=== PATIENT | female | born 1990 | race Caucasian/White ===

== ENCOUNTER 2024-03-22 11:33 | Outpatient (CLI) | payer OTHER ==
[2024-03-22 20:51] LABS: ESTIMATED AVERAGE GLUCOSE 105 mg/dL (70-100); HEMOGLOBIN A1c% 5.3 % (4.27-6.07)
[2024-03-23 05:15] LABS: HIV SCREEN 4TH GENERATION Non Reactive (Non Reactive)
== END 2024-03-22 11:34 | disposition home or self-care (01) ==
LOC: LAB.S 11:33
PROVIDERS: ATTEND Obstetrics & Gynecology
DX: Z34.90 Encounter for supervision of normal pregnancy, unspecified, unspecified trimester (principal)
CPT/HCPCS: 36415; 83036; 86787; 86803; 87389

== ENCOUNTER 2024-04-04 16:01 | Outpatient (CLI) | payer OTHER ==
--- NOTE | 2024-04-05 17:09 | Ultrasound Report ---
PROCEDURE: OB 1st Trimester w/TV INDICATIONS: POSITIVE TEST OUTSIDE/PRIOR DATING DATA: Last menstrual period (LMP): 01/26/2024. LMP-based estimated date of delivery (KAR): 11/01/2024. First dating scan (date and location): 04/04/2024. Estimated date of delivery (KAR) from first dating scan: 11/02/2024. TECHNIQUE: Real-time scanning was performed of the fetus and maternal pelvic organs, with image documentation. Endovaginal scanning was also performed to better visualize the fetus and maternal ovaries. COMPARISON: None. FINDINGS: Intrauterine gestational sac present. Embryo: pole with crown-rump length measuring 2.9 cm consistent 9 weeks and 5 days. Heart rate: 164 bpm. Other: No perigestational fluid collection. Measurement variability in dating: +/- 4 weeks by LMP, +/- 7 days by mean sac diameter (use before 6 weeks gestation if crown-rump length not able to be measured), +/- 5 days by crown-rump length (6-12 weeks gestation). Maternal organs: Ovaries appear within normal limits. Left ovarian corpus luteal cyst. Posterior int ramural fibroid measuring 1.8 cm. Left pedunculated fibroid measuring 3.1 x 2.9 x 4.2 cm. IMPRESSION: 1.Single live intrauterine consistent with 9 weeks and 5 days. 2.Uterine fibroids as above. Reviewed by: Malcom Evans MD on 04/05/2024 5:08 PM PDT Approved by: Malcom Evans MD on 04/05/2024 5:08 PM PDT Station ID: [id number]
== END 2024-04-04 16:02 | disposition home or self-care (01) ==
LOC: DI 16:01
PROVIDERS: ATTEND Obstetrics & Gynecology
DX: O34.11 Maternal care for benign tumor of corpus uteri, first trimester (principal); D25.1 Intramural leiomyoma of uterus; Z3A.09 9 weeks gestation of pregnancy

== ENCOUNTER 2024-10-17 13:57 | Inpatient (IN) ==
[2024-10-17] MEDS ORDERED: miSOPROStoL 200 MCG TABLET BC PRN (14:05)
[2024-10-17] MEDS ORDERED: lidocaine 1% 20 ML MDV ID PRN (14:05)
[2024-10-17] MEDS ORDERED: ACETAMINOPHEN 500 MG TABLET PO PRN (14:05)
[2024-10-17] MEDS ORDERED: OXYTOCIN 10 UNIT/ML VIAL IM PRN (14:05)
[2024-10-17] MEDS ORDERED: LABETALOL 20 MG/4 ML SYRINGE IVP PRN ×3 (14:05)
[2024-10-17] MEDS ORDERED: NIFEdipine 10 MG CAPSULE PO PRN (14:05)
[2024-10-17] MEDS ORDERED: METHYLERGONOVINE 0.2 MG/ML VIAL IM PRN (14:05)
[2024-10-17] MEDS ORDERED: hydrALAZINE INJ 20 MG/ML VIAL IVP PRN ×2 (14:05)
[2024-10-17] MEDS ORDERED: CARBOPROST TROMETHAMINE 250 MCG/ML VIAL IM PRN (14:05)
[2024-10-17] MEDS ORDERED: TRANEXAMIC ACID IN NACL 1,000 MG/100 ML BAG IV PRN (14:05)
[2024-10-17] MEDS ORDERED: SODIUM CHLORIDE FLUSH 0.9% 10 ML SYRINGE IVP PRN (14:05)
[2024-10-17] MEDS ORDERED: OXYTOCIN/SODIUM CHLORIDE 500 ML IV PRN (14:05)
--- NOTE | 2024-10-17 14:40 | HISTORY & PHYSICAL EXAMINATION ---
Admit History Smoking Status: Never smoker Other Maternal History Other Maternal History: Patient is a 34-year-old at 37 weeks 6 days gestation presented a for induction of labor. She has newly diagnosed gestational hypertension with mul tiple elevated blood pressures in the nonsevere range. She did have an elevated protein creatinine ratio last week of 0.3. She has gestational diabetes and is using insulin. Growth scan last night, although not resulted, appears to show IUGR with any EFW of 2587 g, 8%. She has good movement, no leaking or bleeding. No headache, change vision, right upper quadrant pain. Course LMP: 01/26/24 KAR by LMP: 11/01/24 US: @ 9.5wks c/w LMP dating (KAR 11/02/2024) Final KAR: 11/01/2024 PROBLEM: A2GDM: Initiating Insulin 08/22/2024 @ 29.6wks gestation -Lantus 19 units every afternoon -q4wk growth ultrasounds -EFW at 34 weeks: 2284 g, 25th percentile. -NST twice a week Uterine fibroids: 3rd trimester growth ultrasound -(1st trimester ultrasound performed 04/05/2024 @ 9.5wks: "Posterior intramural fibroid measuring 1.8cm. Left pedunculated fibroid measuring 3.1 x 2.9 x 4.2 cm.") That is affecting ALLERGIES: NKDA RX: PNV, Zoloft, Colace, lantus Surgeries: Mandibular surgery FMHX: CAD: Father, PGF Pre- Weight:178.6 BMI: 32.26 Blood type: O+ Antibody: negative CBC: PLT 273 HCT 33.8 HGB 10.8 RUB: Immune VZV: immune HBsAg: negative HepC: NR RPR/AB-EIA: NR HIV: NR HgbA1c: 5.3% PAP:11/17/23 - normal GC/CT: HSV:denies in self and partner Genetic testing: NIPT - negative AFP Covid: 05/22 Flu: 05/22 FAS: 06/15/24 Placenta: anterior Cord: 3vc CIELO: 14.5cm EFW: 300g Growth U/S @ 30wks: EFW 44%tile, CIELO 19.1cm 50gm OGCT: 164 3HR GTT: F:84 1hr 196 2hr 211 3hr 116 TDAP: 08/15/2024 Breast Pump: has 3rd trimester PLT 273 HCT 33.8 HGB 10.8 GBS: Delivery plan: MOD: Anticipate Contraception: Mirena IUD NST Procedure NST Procedure: NST Procedure Start Time 13:05 Stop Time 13:32 Meds/Allgy Home Medications Ambulatory Orders Medication Instructions Recorded Confirmed vitamins no.159-iron tab PO 05/22/24 10/13/24 fumarate 28 mg-folic acid 800 mcg tablet ( Vitamin) sertraline 50 mg tablet (Zoloft) 50 mg PO QDAY 05/22/24 10/13/24 pen needle, diabetic 32 gauge x #100 ea 08/22/24 10/05/2409/24" (Comfort EZ Pen [place]) blood sugar diagnostic #100 ea 08/29/24 10/05/24 cholecalciferol (vitamin D3) 25 25 mcg PO QDAY 08/29/24 10/13/24 mcg (1,000 unit) capsule lancets #200 ea 08/29/24 10/05/24 magnesium glycinate mg PO 08/29/24 10/13/24 insulin glargine 100 unit/mL (3 19 unit subcut QPM 09/28/24 10/13/24 mL) subcutaneous pen (Lantus Solostar U-100 Insulin) choline 500 mg tablet 500 mg PO DAILY 10/17/24 10/17/24 docusate sodium 100 mg capsule 100 mg PO DAILY 10/17/24 10/17/24 (Colace) ferrous sulfate 325 mg (65 mg 325 mg PO DAILY 10/17/24 10/17/24 iron) tablet Allergies Allergies Allergy/AdvReac Type Severity Reaction Status Date / Time No Known Drug Allergies Allergy Verified 10/13/24 09:20 PFSH Active Problems All Active Problems (Updated 10/17/24 @ 14:44 by Otilio Kamara MD) Preeclampsia (Acute) Supervision of high risk in third trimester (Acute) IUGR (intrauterine growth restriction) (Acute) Elevated blood pressure reading without diagnosis of hypertension (Acute) Gestational diabetes mellitus (GDM) requiring insulin (Acute) Anemia complicating , third trimester (Acute) (Acute) Medical History Medical History (Updated 10/17/24 @ 14:44 by Otilio Kamara MD) Gestational hypertension Normal first confirmed, currently in second trimester Surgical History Surgical History (Updated 05/22/24 @ 07:53 by Renetta Carter MA) History of mandibular surgery Family History Family History (Updated 05/22/24 @ 07:53 by Renetta Carter MA) Father CAD (coronary artery disease) Maternal grandfather CAD (coronary artery disease) Maternal grandfather No problems noted. Paternal grandfather CAD (coronary artery disease) Social History Social History (Updated 05/22/24 @ 07:54 by Renetta Carter MA) Smoking Status: Never smoker Do you vape?: No Substance Use: denies use Are you sexually active?: Yes Review of Systems Status of ROS: 10 or more systems reviewed and unremarkable except as noted in history and below Physical Other Notes Labor Progress Note/Additional Text: General: Alert, oriented, no acute distress Head: Normal cephalic atraumatic Eyes: PERRLA, extraocular motions intact. Respiratory: Normal rate of respiration. No accessory muscle use, normal respiratory effort. Cardiovascular: Regular rate and rhythm Abdomen: Gravid, nontender, nondistended Extremities: Normal range of motion Neuro: Oriented x3. Normal movements Psych: Appropriate mood and affect. Normal judgment and insight SVE: 1/0/-3 FHT: 135 BPM baseline, moderate variability, accelerations present, no decelerations. Reactive NST [place]: quiescent Plan for Labor Plan For Labor I expect patient to be DC'd or transferred within 96 hours.: Yes Conclusion/Plan Problem List (1) Preeclampsia: Plan: Patient met criteria today at [facility]. Also had a previously elevated protein creatinine ratio. No severe features. Admit to L&D for cervical ripening. Anticipate labor if successful. Epidural at patient's request. CBC, CMP, protein creatinine ratio repeated today Counseled on The Risk, Benefits, Alternatives of Induction of Labor, including the risk of vaginal delivery including bleeding, infection, prolapse, intolerance, operative vaginal delivery, section. Patient agrees with plan and will plan for induction with misoprostol for cervical ripening for unfavorable cervix. Qualifiers: Trimester: third trimester Qualified Code(s): O14.93 - Unspecified pre- eclampsia, third trimester (2) IUGR (intrauterine growth restriction): Plan: 8% on ultrasound. Final report pending. Greater than 2500 g (3) Gestational diabetes mellitus (GDM) requiring insulin: Plan: Well-controlled on evening insulin Will keep her evening insulin, but decrease dose. Can give supplemental insulin if needed Fasting and postprandial glucose checks. Also check before evening dose. (4) Supervision of high risk in third trimester: Plan: As above
--- NOTE | 2024-10-17 14:47 | PHARMACY PROGRESS NOTE ---
Best Possible Medication History Admit Date and Time: 10/17/24 [id number] Home Medications Medication Instructions Recorded Confirmed Type vitamins no.159-iron 1 tab PO DAILY 05/22/24 10/17/24 History fumarate 28 mg-folic acid 800 mcg tablet ( Vitamin) sertraline 50 mg tablet (Zoloft) 50 mg PO DAILY 05/22/24 10/17/24 History pen needle, diabetic 32 gauge x #100 ea 08/22/24 10/05/24 Rx 3/16" (Comfort EZ Pen [place]) blood sugar diagnostic #100 ea 08/29/24 10/05/24 Rx cholecalciferol (vitamin D3) 25 25 mcg PO DAILY 08/29/24 10/17/24 History mcg (1,000 unit) capsule lancets #200 ea 08/29/24 10/05/24 Rx magnesium glycinate 100 mg PO DAILY 08/29/24 10/17/24 History insulin glargine 100 unit/mL (3 20 unit subcut QPM 09/28/24 10/17/24 History mL) subcutaneous pen (Lantus Solostar U-100 Insulin) choline 500 mg tablet 500 mg PO DAILY 10/17/24 10/17/24 History docusate sodium 100 mg capsule 100 mg PO DAILY 10/17/24 10/17/24 History (Colace) ferrous sulfate 325 mg (65 mg 325 mg PO DAILY 10/17/24 10/17/24 History iron) tablet Processed by: Pharmacy Medications reviewed in ED?: No Medication History completed: Yes Patient Interview: Completed Secondary Source(s): Insurance records [facility] Statement: As the person ultimately responsible for medication therapy, providers are able to order a medication from an existing home medication list in [facility] via the "Reconcile Routine" prior to Confirmation of that medication by personal support worker. Such practice is discouraged except when the physician, in their clinical judgment, deems that a medical need exists for a medication without regard to previous use.
[2024-10-17 15:44] LABS: BASOPHILS % (AUTO) 0.4 %; EOSINOPHILS # (AUTO) 0.1 10^3/uL (0.0-0.7); EOSINOPHILS % (AUTO) 0.7 %; HCT - HEMATOCRIT 34.6 % (37.0-47.0); HGB - HEMOGLOBIN 11.5 g/dL (12.0-16.0); LYMPHOCYTES # (AUTO) 1.7 10^3/uL (1.5-3.5); LYMPHOCYTES % (AUTO) 18.3 %; MEAN CORPUSCULAR HEMOGLOBIN 27.2 pg (27.0-31.0); MEAN CORPUSCULAR HGB CONC 33.2 g/dL (32.0-36.0); MEAN CORPUSCULAR VOLUME 81.8 fL (81.0-99.0); MEAN PLATELET VOLUME 11.1 fL (7.9-10.8); MONOCYTES # (AUTO) 0.5 10^3/uL (0.0-1.0); MONOCYTES % (AUTO) 5.3 %; NEUTROPHILS # (AUTO) 7.1 10^3/uL (1.5-6.6); NEUTROPHILS % (AUTO) 74.7 %; PLT - PLATELET COUNT 207 10^3/uL (130-450); RED BLOOD COUNT 4.23 10^6/uL (4.20-5.40); RED CELL DISTRIBUTION WIDTH 14.3 % (12.0-15.0); WHITE BLOOD COUNT 9.5 x10^3/uL (4.8-10.8)
[2024-10-17] MEDS: miSOPROStoL 100 MCG TABLET VG SCH (15:52)
[2024-10-17 16:01] LABS: ALBUMIN 3.5 g/dL (3.2-5.5); ALBUMIN/GLOBULIN RATIO 1.1 (1.0-2.2); BILIRUBIN,TOTAL 0.2 mg/dL (0.2-1.0); CALCIUM 9.4 mg/dL (8.5-10.3); CREATININE 0.6 mg/dL (0.6-1.3); POTASSIUM 3.8 mmol/L (3.5-4.5); TOTAL PROTEIN 6.6 g/dL (6.4-8.9)
[2024-10-17 16:24] LABS: CREATININE,URINE 54.4 mg/dL; PROTEIN/CREATININE RATIO,URINE 0.3 (<=0.2)
[2024-10-17] MEDS: SODIUM CHLORIDE FLUSH 0.9% 10 ML SYRINGE IVP SCH (19:56)
[2024-10-17] MEDS: SERTRALINE 50 MG TABLET PO SCH (21:04)
[2024-10-17] MEDS: INSULIN GLARGINE-YFGN 300 UNIT/3 ML PEN SUBQ SCH (21:06)
[2024-10-17] MEDS: CALCIUM CARBONATE CHEW 500 MG TABLET PO SCH (21:12)
[2024-10-18] MEDS ORDERED: CALCIUM CARBONATE CHEW 500 MG TABLET PO PRN (07:37)
--- NOTE | 2024-10-18 12:30 | ANESTHESIA PROCEDURE NOTE ---
Pre-Anesthesia VS, & Labs Diagnosis Surgical Diagnosis:: labor induction Procedure Procedure: Active labor, gestational DM, Pre-eclampsia Vitals Vital Signs: Temp Pulse Resp BP Pulse Ox 36.9 C 93 16 125/81 99 10/18/24 08:35 10/18/24 08:35 10/18/24 08:35 10/18/24 08:35 10/18/24 08:35 NPO NPO: Other Is Patient ?: Yes Lab Results Current Lab Results: Laboratory Tests 10/17/24 21:08: POC Whole Bld Glucose 89 10/17/24 15:35: WBC 9.5, RBC 4.23, Hgb 11.5 L, Hct 34.6 L, MCV 81.8, MCH 27.2, MCHC 33.2, RDW 14.3, Plt Count 207, MPV 11.1 H, Neut # (Auto) 7.1 H, Lymph # (Auto) 1.7, [place] # (Auto) 0.5, Eos # (Auto) 0.1, Baso # (Auto) 0.0, Absolute Nucleated RBC 0.00, Nucleated RBC % 0.0, Sodium 134 L, Potassium 3.8, Chloride 104, Carbon Dioxide 22, Anion Gap 8.0, BUN 14, Creatinine 0.6, Estimated GFR (MDRD) 115, Glucose 88, Calcium 9.4, Total Bilirubin 0.2, AST 14, ALT 25, A lkaline Phosphatase 151 H, Total Protein 6.6, Albumin 3.5, Globulin 3.1, Albumin/Globulin Ratio 1.1, Blood Type O POSITIVE, Antibody Screen NEGATIVE 10/17/24 15:35 10/17/24 15:35 Meds/Allgy Home Medications Ambulatory Orders Medication Instructions Recorded Confirmed vitamins no.159-iron 1 tab PO DAILY 05/22/24 10/17/24 fumarate 28 mg-folic acid 800 mcg tablet ( Vitamin) sertraline 50 mg tablet (Zoloft) 50 mg PO DAILY 05/22/24 10/17/24 pen needle, diabetic 32 gauge x #100 ea 08/22/24 10/05/24 3/16" (Comfort EZ Pen [place]) blood sugar diagnostic #100 ea 08/29/24 10/05/24 cholecalciferol (vitamin D3) 25 25 mcg PO DAILY 08/29/24 10/17/24 mcg (1,000 unit) capsule lancets #200 ea 08/29/24 10/05/24 magnesium glycinate 100 mg PO DAILY 08/29/24 10/17/24 insulin glargine 100 unit/mL (3 20 unit subcut QPM 09/28/24 10/17/24 mL) subcutaneous pen (Lantus Solostar U-100 Insulin) choline 500 mg tablet 500 mg PO DAILY 10/17/24 10/17/24 docusate sodium 100 mg capsule 100 mg PO DAILY 10/17/24 10/17/24 (Colace) ferrous sulfate 325 mg (65 mg 325 mg PO DAILY 10/17/24 10/17/24 iron) tablet Allergies Allergies Allergy/AdvReac Type Severity Reaction Status Date / Time No Known Drug Allergies Allergy Verified 10/13/24 09:20 PFSH Active Problems All Active Problems (Updated 10/17/24 @ 14:44 by Otilio Kamara MD) Preeclampsia (Acute) Supervision of high risk in third trimester (Acute) IUGR (intrauterine growth restriction) (Acute) Elevated blood pressure reading without diagnosis of hypertension (Acute) Gestational diabetes mellitus (GDM) requiring insulin (Acute) Anemia complicating , third trimester (Acute) (Acute) Medical History Medical History (Updated 10/17/24 @ 14:44 by Otilio Kamara MD) Gestational hypertension Normal first confirmed, currently in second trimester Surgical History Surgical History (Updated 05/22/24 @ 07:53 by Renetta Carter MA) History of mandibular surgery Family History Family History (Updated 05/22/24 @ 07:53 by Renetta Carter MA) Father CAD (coronary artery disease) Maternal grandfather CAD (coronary artery disease) Maternal grandfather No problems noted. Paternal grandfather CAD (coronary artery disease) Social History Social History (Updated 05/22/24 @ 07:54 by Renetta Carter MA) Smoking Status: Never smoker Do you dip or chew tobacco?: No Do you vape?: No Patient requests smoking cessation consult: No Initiate information on smoking cessation: No Substance Use: denies use Are you sexually active?: Yes Anesthesia Exam (Expanded) Exam General: Alert, Oriented x3, Cooperative and No acute distress Dental: WNL Mouth Opening: Greater than 4 Fingerbreadths Neck Mobility: Normal Mallampati classification: II Thyromental Distance: greater than 6 cm Respiratory: Lungs clear Cardiovascular: Regular rate Exam Exam Vital Signs: Vital Signs x48h Temp Pulse Resp BP Pulse Ox 10/18/24 08:35 36.9 C 93 16 125/81 99 Plan Problem List (1) Preeclampsia: Plan: Patient met criteria today at [facility]. Also had a previously elevated protein creatinine ratio. No severe features. Admit to L&D for cervical ripening. Anticipate labor if successful. Epidural at patient's request. CBC, CMP, protein creatinine ratio repeated today Counseled on The Risk, Benefits, Alternatives of Induction of Labor, including the risk of vaginal delivery including bleeding, infection, prolapse, intolerance, operative vaginal delivery, section. Patient agrees with plan and will plan for induction with misoprostol for cervical ripening for unfavorable cervix. Qualifiers: Trimester: third trimester Qualified Code(s): O14.93 - Unspecified pre- eclampsia, third trimester (2) IUGR (intrauterine growth restriction): Plan: 8% on ultrasound. Final report pending. Greater than 2500 g (3) Gestational diabetes mellitus (GDM) requiring insulin: Plan: Well-controlled on evening insulin Will keep her evening insulin, but decrease dose. Can give supplemental insulin if needed Fasting and postprandial glucose checks. Also check before evening dose. (4) Supervision of high risk in third trimester: Plan: As above Plan Anesthesia Type: Epidural Consent for Procedure(s) Verified and Reviewed: Yes Code Status: Attempt Resuscitation ASA Classification ASA classification: 3-Severe systemic disease Is this case an emergency?: No
[2024-10-18] MEDS: ONDANSETRON 4 MG/2 ML VIAL IVP PRN (12:55)
[2024-10-18] MEDS: LACTATED RINGERS 1,000 ML IV PRN ×2 (12:56→15:20)
[2024-10-18] MEDS ORDERED: ROPIVACAINE 0.2% 200 MG/100 ML BAG EP ONE (12:56)
[2024-10-18] MEDS ORDERED: ePHEDrine 50 MG/ML VIAL IVP PRN (13:35)
[2024-10-18] MEDS ORDERED: ONDANSETRON 4 MG/2 ML VIAL IVP PRN (13:35)
[2024-10-18] MEDS ORDERED: METOCLOPRAMIDE 10 MG/2 ML VIAL IVP PRN (13:35)
[2024-10-18] MEDS ORDERED: NALOXONE 0.4 MG/ML VIAL IVP PRN (13:35)
[2024-10-18] MEDS ORDERED: LACTATED RINGERS 500 ML IV ONE (13:35)
[2024-10-18] MEDS ORDERED: diphenhydrAMINE INJ 50 MG/ML VIAL IVP PRN (13:35)
[2024-10-18] MEDS ORDERED: NALBUPHINE 10 MG/ML AMP IVP PRN (13:35)
--- NOTE | 2024-10-18 13:41 | PROVIDER PROGRESS NOTE ---
Labor Progress Note Labor Progress Note Labor Progress Note/Additional Text: S: Abbi was evaluated at bedside at approximately 11am. Feeling some discomfort with contractions. Discussed AROM and she did agree to proceed. O: VS reviewed in Centricity SVE: 50/-2, AROM performed with small amount of clear fluid monitoring: FHTs: 130s bpm baseline, + accel, a few late decelerations, mod variability [place]: 2-5 min Cat 2, overall reassuring A/P: 34 yo at 38w0d undergoing IOL: - gHTN - A2DM on insulin - IUGR, 8%tile - GBS neg - Received misoprostol x 4 doses, now s/p AROM. Discussed repeat SVE in 4hrs and possible augmentation with pitocin if contractions space out or SVE is unchanged. - BPs normal to mild range. Continue to monitor. - Increase BG checks to every 1 hour. Discussed possible insulin drip if BGs persistenly > 120. Cesar Maxwell MD
[2024-10-18] MEDS: ROPIVACAINE 0.2% 200 MG/100 ML BAG EP PRN (19:08)
[2024-10-18] MEDS ORDERED: INSULIN GLARGINE-YFGN 300 UNIT/3 ML PEN SUBQ SCH (21:00)
[2024-10-18] MEDS ORDERED: miSOPROStoL 200 MCG TABLET ONE (21:12)
--- NOTE | 2024-10-19 15:06 | PROVIDER PROGRESS NOTE ---
Subjective Prog Note Date Prog Note Date: 10/19/24 Prog Note Time: 15:04 Subjective Subjective: Feeling well today. Reports pain is well controlled. She is and supplementing with formula as baby has had some low blood sugars. She is ambulating around the room without difficulty. Urinating spontaneously. Reports bleeding is light. No COLON, vision changes, upper abdominal pain. Current Medications Current Medications Current Medications: Current Medications Generic Name Dose Route Start Last Admin Trade Name Freq PRN Reason Stop Dose Admin Acetaminophen 1,000 mg 10/17/24 14:05 Acetaminophen 500 Mg Tablet PO Q6HR PRN Pain or Fever > 38C (100.4F) Calcium Carbonate/Glycine 500 mg 10/18/24 07:37 Calcium Carbonate Chew 500 Mg Tablet PO BID PRN Heartburn Carboprost Tromethamine 250 mcg 10/17/24 14:05 Carboprost Tromethamine 250 Mcg/Ml Vial IM 10/22/24 14:05 Q15M PRN Step 4: Hemorrhage protocol Diphenhydramine HCl 12.5 - 25 mg 10/18/24 13:35 Diphenhydramine Inj 50 Mg/Ml Vial IVP Q6HR PRN ITCHING Ephedrine Sulfate 5 mg 10/18/24 13:35 Ephedrine 50 Mg/Ml Vial IVP Q5M PRN For SBP<100;give until SBP>100 Hydralazine HCl 5 - 20 mg 10/17/24 14:05 Hydralazine Inj 20 Mg/Ml Vial IVP Q20M PRN SBP >160 or DBP >110 Protocol Hydralazine HCl 10 mg 10/17/24 14:05 Hydralazine Inj 20 Mg/Ml Vial IVP 10/22/24 14:05 .ONCE PRN Step 9 of Labetalol protocol Protocol Lactated Ringer's 1,000 mls @ 100 mls/hr 10/17/24 14:05 10/18/24 15:20 Lr IV 100 mls/hr .Q10H PRN Administration Save for active labor Lactated Ringer's 1,000 mls @ 999 mls/hr 10/17/24 14:05 10/18/24 12:56 Lr IV 10/20/24 14:04 999 mls/hr ONCE PRN Administration distress Oxytocin/Sodium Chloride 500 mls @ 999 mls/hr 10/17/24 14:05 Pitocin/Sodium Chloride IV 10/22/24 14:05 PRN PRN POST- HEMORR PREVENTION Protocol 999 MILLIUNIT/MIN Tranexamic Acid 1,000 mg in 100 mls @ 600 mls/hr 10/17/24 14:05 Tranexamic 1,000 Mg/100ml-Nacl IV 10/22/24 14:05 .ONCE PRN EBL >1200mL and within 3hr Ropivacaine 200 mg in 100 mls @ 0 mls/hr 10/18/24 13:35 10/18/24 19:08 Naropin 0.2% EP 10 mls/hr PRN PRN Administration PAIN Protocol Per Protocol Labetalol HCl 20 - 80 mg 10/17/24 14:05 Labetalol 20 Mg/4 Ml Syringe IVP Q10M PRN SBP >160 or DBP >110 Protocol Labetalol HCl 20 mg 10/17/24 14:05 Labetalol 20 Mg/4 Ml Syringe IVP 10/22/24 14:05 .ONCE PRN Step 9 of nifedipine protocol Protocol Labetalol HCl 40 mg 10/17/24 14:05 Labetalol 20 Mg/4 Ml Syringe IVP 10/22/24 14:05 .ONCE PRN Step 9 of hydrALAZine protocol Protocol Lidocaine HCl 20 ml 10/17/24 14:05 Lidocaine 1% 20 Ml Mdv ID 10/22/24 14:05 .ONCE PRN PERINEAL REPAIR Methylergonovine Maleate 0.2 mg 10/17/24 14:05 Methylergonovine 0.2 Mg/Ml Vial IM 10/22/24 14:05 .ONCE PRN Step 2: Hemorrhage protocol Metoclopramide HCl 10 mg 10/18/24 13:35 Metoclopramide 10 Mg/2 Ml Vial IVP Q6HR PRN Nausea / Vomiting Misoprostol 800 mcg 10/17/24 14:05 Misoprostol 200 Mcg Tablet BC 10/22/24 14:05 .ONCE PRN Step 3: Hemorrhage protocol Nalbuphine HCl 2.5 - 5 mg 10/18/24 13:35 Nalbuphine 10 Mg/Ml Amp IVP Q4H PRN ITCHING Naloxone HCl 0.1 mg 10/18/24 13:35 Naloxone 0.4 Mg/Ml Vial IVP Q2M PRN RR<8 Nifedipine 10 - 20 mg 10/17/24 14:05 Nifedipine 10 Mg Capsule PO Q20M PRN SBP >160 or DBP >110 Protocol Ondansetron HCl 4 mg 10/17/24 14:05 10/18/24 12:55 Ondansetron 4 Mg/2 Ml Vial IVP 4 mg Q4HR PRN Administration Nausea / Vomiting Ondansetron HCl 4 mg 10/18/24 13:35 Ondansetron 4 Mg/2 Ml Vial IVP Q6HR PRN Nausea / Vomiting Oxytocin 10 unit 10/17/24 14:05 Oxytocin 10 Unit/Ml Vial IM 10/22/24 14:05 .ONCE PRN Step one: If no IV access Sertraline HCl 50 mg 10/17/24 21:00 10/17/24 21:04 Sertraline 50 Mg Tablet PO 50 mg QPM ANIL Administration Sodium Chloride 10 ml 10/17/24 17:00 10/18/24 17:00 Sodium Chloride Flush 0.9% 10 Ml Syringe IVP Not Given 0100,0900,1700 ANIL Sodium Chloride 10 ml 10/17/24 14:05 Sodium Chloride Flush 0.9% 10 Ml Syringe IVP PRN PRN NEEDED PER PROVIDER ORDERS Objective Vital Signs/Intake & Output Reviewed Vital Signs: Yes Vital Signs: Vital Signs x48h Temp Pulse Resp BP Pulse Ox 10/19/24 10:28 98.2 F 84 16 134/83 H 98 Intake & Output: Intake & Output 10/16/24 10/17/24 10/18/24 10/19/24 23:59 23:59 23:59 23:59 Intake Total 800 / 800 900 / 900 Output Total 700 / 700 2000 / 2000 Balance 100 / 100 -1100 / -1100 Weight (kg) 207 lb Objective Comments/Other: Gen: NAD Chest: non labored respirations Abd: gravid, non tender Ext: trace LE edema, no evidence of DVT Lab Results 10/17/24 15:35 10/17/24 15:35 Assessment/Plan Problem List (1) care and examination of lactating mother: Impression: - Continue routine care - Anticipate discharge home tomorrow with outpatient follow up for BP check at 1 wk . (2) Preeclampsia: Impression: - Preeclampsia without severe features. Asymptomatic. Continue to monitor. Qualifiers: Trimester: third trimester Qualified Code(s): O14.93 - Unspecified pre- eclampsia, third trimester (3) Gestational diabetes mellitus (GDM) requiring insulin: Impression: Plan for 2hr GTT .
--- NOTE | 2024-10-19 15:14 | DELIVERY NOTE ---
Delivery Note Labor Labor: positive Augmented by ARM Delivery Method Delivery Method: positive Spontaneous vaginal delivery Cervical Ripening Method Cervical Ripening Method: positive Misoprostil Presentation Presentation: positive Vertex and KATHARINE - right occiput anterior Nuchal Cord Nuchal Cord: positive None Amniotic Fluid Description Amniotic Fluid Description: positive Clear Episiotomy Type Episiotomy Type: positive None Laceration Laceration: positive 2nd degree Suture Suture Size: positive 3-0 (Rap[place]) Delivery Outcome Delivery Date: 10/18/24 Delivery Time: 23:24 Delivery Outcome: positive Livebirth : positive Placed in direct skin contact with mother, Bulb syringe, Stimulated, Warmed and Warmer used [place] sex: positive Male Cord Cord: positive 3 vessels Placenta Placenta: positive Intact Estimated Blood Loss Estimated Blood Loss (in cc): 100 Post Delivery Events Post Delivery Events: positive No post delivery events Delivery Comments (Free Text/Narrative) Delivery Comments (Free Text/Narrative): I was called to the bedside for patient complete and ready to start pushing. The anterior shoulder delivered easily with maternal effort and gentle downward pressure followed by the posterior shoulder and the remainder of the body. The infant was placed on the mother's abdomen. After approximately 2 min, the cord was clamped times two and cut. Cord blood collected. Pitocin was started. The placenta was delivered intact. Good uterine tone noted. A 2nd degree perineal laceration was noted and repaired with 3-0 [place]. Perineal hemostasis was noted at completion of procedure. Cesar Maxwell MD
[2024-10-20 04:57] VITALS: O2SAT 96
[2024-10-20] MEDS ORDERED: SODIUM CHLORIDE 0.9% 1,000 ML ONE (06:09)
[2024-10-20] MEDS ORDERED: LABETALOL 5 MG/1 ML 20 ML MDV IVP PRN (08:15)
[2024-10-20] MEDS ORDERED: hydrALAZINE INJ 20 MG/ML VIAL IVP PRN ×2 (08:15)
[2024-10-20] MEDS ORDERED: WITCH HAZEL/GLYCERIN 1 PAD TOP PRN (08:15)
[2024-10-20] MEDS ORDERED: SIMETHICONE CHEW 80 MG TABLET PO PRN (08:15)
[2024-10-20] MEDS ORDERED: OXYTOCIN/SODIUM CHLORIDE 500 ML IV PRN (08:15)
[2024-10-20] MEDS ORDERED: ACETAMINOPHEN 500 MG TABLET PO PRN (08:15)
[2024-10-20] MEDS ORDERED: HYDROCORTISONE 1% CREAM 28 GM TUBE TOP PRN (08:15)
[2024-10-20] MEDS ORDERED: NALOXONE 0.4 MG/ML VIAL IVP PRN (08:15)
[2024-10-20] MEDS ORDERED: NIFEdipine 10 MG CAPSULE PO PRN (08:15)
[2024-10-20] MEDS ORDERED: LABETALOL 20 MG/4 ML SYRINGE IVP PRN ×2 (08:15)
[2024-10-20] MEDS: DOCUSATE SODIUM 100 MG CAPSULE PO SCH (08:36)
[2024-10-20] MEDS: IBUPROFEN 600 MG TABLET PO PRN (08:36)
--- NOTE | 2024-10-20 10:23 | Discharge Summary ---
Discharge Summary Admit Date: 10/17/24 Discharge Date: 10/20/24 Discharging Provider: Otilio Kamara Code Status: Attempt Resuscitation DIAGNOSES Admission Diagnoses: Gestational Diabetes Preeclampsia IUGR Discharge Diagnoses with Status of Each Condition: Same Status post spontaneous vaginal delivery HPI History of Present Illness: Subjective Patient reports she is doing well. Lochia appropriate. Denies heavy bleeding. Ambulating. Pelvic and abdominal pain well-controlled. Tolerating oral intake. Diet: Regular. Voiding without difficulty. Passing flatus. Denies BM. Patient is bonding with baby in room Breast feeding going well. Supplementing with formula Denies feeling lightheaded, dizzy or excessively fatigued. Objective General: Alert, oriented, no apparent distress. Cardiovascular: Regular rate. Regular rhythm. Lungs: No increased work of breathing. Abdomen: Uterus firm. Below umbilicus. No guarding or rebound. Extremities: No pain on palpation. No cords palpated. Distal pulses intact. HOSPITAL COURSE Hospital Course: Patient presented at 37 weeks 6 days for induction of labor for preeclampsia, gestational diabetes, IUGR. She received misoprostol for cervical ripening, AROM, oxytocin. Delivery was uncomplicated. course was complicated by glucose control. but had formula supplementation and was doing well day 2, so was discharged together. ALLERGIES Allergies Allergy/AdvReac Type Severity Reaction Status Date / Time No Known Drug Allergies Allergy Verified 10/20/24 08:08 MEDICATIONS Ambulatory Orders Medication Instructions Recorded Confirmed vitamins no.159-iron 1 tab PO DAILY 05/22/24 10/17/24 fumarate 28 mg-folic acid 800 mcg tablet ( Vitamin) sertraline 50 mg tablet (Zoloft) 50 mg PO DAILY 05/22/24 10/17/24 cholecalciferol (vitamin D3) 25 25 mcg PO DAILY 08/29/24 10/17/24 mcg (1,000 unit) capsule magnesium glycinate 100 mg PO DAILY 08/29/24 10/17/24 choline 500 mg tablet 500 mg PO DAILY 10/17/24 10/17/24 docusate sodium 100 mg capsule 100 mg PO DAILY 10/17/24 10/17/24 (Colace) ferrous sulfate 325 mg (65 mg 325 mg PO DAILY 10/17/24 10/17/24 iron) tablet PHYSICAL EXAM AT DISCHARGE Vital Signs: Vital Signs x48h Temp Pulse Resp BP BP Pulse Ox 10/20/24 08:04 36.9 C 86 15 119/74 10/20/24 04:56 36.6 C 75 15 115/64 96 LABS 10/17/24 15:35 10/17/24 15:35 FOLLOW UP [facility] TIME SPENT Time Spent in Discharge (Minutes): 20 Discharge Plan Discharge Patient Disposition: 01 Home, Self Care Condition: Stable Medically Cleared Date:: 10/20/24 Prescriptions: Continued choline 500 mg tablet 500 mg PO DAILY docusate sodium [Colace] 100 mg capsule 100 mg PO DAILY ferrous sulfate 325 mg (65 mg iron) tablet 325 mg PO DAILY Vitamin 28 mg iron- 800 mcg tablet 1 tab PO DAILY sertraline [Zoloft] 50 mg tablet 50 mg PO DAILY cholecalciferol (vitamin D3) 25 mcg (1,000 unit) capsule 25 mcg PO DAILY magnesium glycinate 100 mg magnesium capsule 100 mg PO DAILY Discontinued (DME) pen needle, diabetic [Comfort EZ Pen Rose] 32 gauge x 3/16" needle See Rx Instructions .Route Qty: 100 0RF Rx Instructions: As directed to inject insulin 1-4 times a day (DME) lancets Misc See Rx Instructions .ROUTE .MEDSUPPLY Qty: 200 4RF Rx Instructions: 4 times per day as directed (DME) blood sugar diagnostic Strip See Rx Instructions .ROUTE .MEDSUPPLY Qty: 100 5RF Rx Instructions: 4 times per day via meter as directed insulin glargine [Lantus Solostar U-100 Insulin] 100 unit/mL (3 mL) insulin pen 20 unit subcut QPM Activity Restrictions: Additional Comments Diet: Regular Print Language: Belarusian Patient Instructions: Vaginal After, Depression Follow-up Care: Otilio Kamara MD [Provider Admit Priv/Credential] -
[2024-10-20 13:06] VITALS: BP 132/71; TEMP 97.9
--- NOTE | 2024-10-20 13:08 | Labor Flowsheet ---
Labor Flowsheet Datetime Report Generated by CPN: 10/20/2024 13:08 Datetime: 10/20/2024 12:31 VITAL SIGNS NBP Sys/Jaycee/Mean (mmHg): 132 : 71 : 87 Pulse: 87 Datetime: 10/20/2024 07:00 Stage of : Datetime: 10/19/2024 21:19 SpO2 (%): 96 Datetime: 10/19/2024 01:30 Respirations: 16 Datetime: 10/19/2024 01:15 Temperature (C): 36.9 PAIN Pain Scale: 1 Pain Presence: None/Denies Datetime: 10/19/2024 01:00 Pain Type: N/A Datetime: 10/19/2024 00:30 Temperature Route: Oral Datetime: 10/18/2024 23:45 LaborFlag: Labor Datetime: 10/18/2024 23:30 Pain Location: Abdomen Datetime: 10/18/2024 23:24 Stage 2 Comments: delivered at 2324 Datetime: 10/18/2024 23:15 ASSESSMENT A Monitor Mode: External US FHR Baseline Changes: No Baseline Change Variability: Moderate 6-25 bpm Accelerations: 15X15 Decelerations: Early; Variable Category: Category II Comments: heart rate down to 120bpm with pushing back to baseline of 150 Datetime: 10/18/2024 23:04 FHR Baseline Rate : 140 Actions for Decelerations: Side to Side Pushing Position: Pushing with Contractions; Pushing Right Side Pushing Progress: Descent with Pushing Datetime: 10/18/2024 22:56 Patient Position/Activity: Right Tilt Datetime: 10/18/2024 22:48 Oxygen Method: Room Air Datetime: 10/18/2024 22:37 STAGE 2 Pushing: Coached on Pushing; Urge to Push Preparation for Delivery: Perineal Prep Done Datetime: 10/18/2024 22:29 Provider Reviewed Strip: Yes COMMUNICATION Communication: Provider at Bedside Communication Comments: Dr Alissa at Bedside .patient preparing to push Datetime: 10/18/2024 22:20 MATERNAL ASSESSMENT Level of Consciousness: Agitation or Confusion Datetime: 10/18/2024 22:14 Notification Reason: Labor Status Datetime: 10/18/2024 22:10 Monitor Interventions for FHR: Ultrasound Adjusted VAGINAL EXAM Dilatation (cm): 10.0 Effacement (%): 100 Station: 1 Vaginal Bleeding: Normal Show Cervix, Consistency: Soft Cervix, Position: Anterior Datetime: 10/18/2024 21:46 UTERINE ACTIVITY Monitor Mode: External Monitor Interventions for UA: [place] Adjusted Quality: Strong Resting Tone (Palpate): Relaxed Datetime: 10/18/2024 21:35 Frequency (min): 2-3 Datetime: 10/18/2024 21:10 Anesthesia Level Check: T9 Datetime: 10/18/2024 20:28 Contraction Comments: palpated patient states she feels pressure on her abdomen Amniotic Fluid Amount: Small Breath Sounds, Left: Clear and Equal Breath Sounds, Right: Clear and Equal Datetime: 10/18/2024 19:21 DTR's/Clonus: DTRs 2+; No Clonus Headache: Denies Nausea/Vomiting: Denies RUQ Epigastric Pain: Denies I/O Interventions: Ice Chips Given ANESTHESIA Anesthesia Plans: Epidural Datetime: 10/18/2024 18:35 Duration (sec): 50-60 Pattern: Normal: <= 5 Contractions in 10 Minutes Datetime: 10/18/2024 16:30 Exam by: P. Freitas,RN Datetime: 10/18/2024 13:30 ASSESSMENT B Monitor Mode: External US Datetime: 10/18/2024 13:09 Anesthesia Interview: E Epidural Positioning: Sitting Epidural Procedure: Cath Placed; Test Dose Datetime: 10/18/2024 12:57 PROCEDURE TIME OUT Procedure Verify: Correct Patient Identity; Correct Side and Site are Marked; Accurate Procedure Co nsent Form; Agreement on Procedure to be Done; Correct Patient Position; Safety Precautions Based on Patient History or Medication Use Datetime: 10/18/2024 12:00 Membrane Status: Ruptured Datetime: 10/18/2024 10:53 Membranes Rupture Method: Artificial Amniotic Fluid Color: Clear Amniotic Fluid Odor: Normal Datetime: 10/18/2024 08:21 PRE-INDUCTION CHECKLIST Pt Meets Criteria for Induction: Yes Datetime: 10/18/2024 05:03 Cervical Ripening Agents: Cytotec @ Medication Comments: vag Datetime: 10/18/2024 04:16 Pain Assessment Comments: pt reports back px Patient Care Comments: peanut ball Datetime: 10/18/2024 04:02 Provider Notified (Name): Dr. Asad Datetime: 10/18/2024 00:00 Vaginal Exam Comments: unchanged Datetime: 10/17/2024 21:06 MEDICATIONS Insulin: Reg Insulin Subcutaneous (Units) @ 15 u Datetime: 10/17/2024 21:03 Pain Goal: 6 Datetime: 10/17/2024 19:44 Maternal Comments: Pt states "right hand feels a bit tingly" Datetime: 10/17/2024 19:36 Plan of Care: Plan of Care Discussed; Induction Labor/Induction: Labor Stages; Cervical Ripening; Tachysystole Interventions Pain Management: Comfort Measures Medications: Cervical Ripening; Pitocin Related: Common Discomforts of ; Nutrition; Hydration; Activity and Rest Datetime: 10/17/2024 14:40 PATIENT CARE IV/Blood Work: IV Started TEACHING Instructional Method: Verbal Unit Routine: [place] to Room; Call Hong; Bed; Unit Personnel; Monitoring; Diet/Nutrition Serv ices; Medications
== END 2024-10-20 12:50 | disposition home or self-care (01) | DRG 807 ==
LOC: WFO 13:57 → FBP 13:57
PROVIDERS: ADMIT Obstetrics & Gynecology; ATTEND Obstetrics & Gynecology